=== PATIENT | male | born 1960 ===

== ENCOUNTER 2024-01-13 13:04 | Observation (INO) | payer BC ==
[~2024-01-13] VITALS: Ht 177.8 cm; Wt 128.6 kg
[2024-01-13 14:42] VITALS: BP 130/70
[2024-01-13] MEDS ORDERED: Magnesium Hydroxide Conc 10 ML UDC PO PRN (15:20)
[2024-01-13] MEDS ORDERED: TraZODone HCl 50 MG Tab PO PRN (15:20)
[2024-01-13] MEDS ORDERED: OxyCODONE HCL 5 MG TAB PO PRN (15:20)
[2024-01-13] MEDS ORDERED: Ondansetron 4 MG TAB PO PRN (15:20)
[2024-01-13] MEDS ORDERED: Acetaminophen 650 MG Supp PR PRN (15:25)
[2024-01-13] MEDS ORDERED: FLU VACC QS2023-24(6MOS UP)/PF 60 MCG/0.5 ML SYRINGE IM SCH (15:25)
[2024-01-13] MEDS ORDERED: Bisacodyl 10 MG Supp PR PRN (15:25)
[2024-01-13] MEDS ORDERED: Albuterol 2.5 MG/3 ML VIAL INH PRN (15:40)
[2024-01-13] MEDS ORDERED: HydrALAZINE HCl 20 MG / ML 1ML Vial IV PRN (15:40)
[2024-01-13] MEDS ORDERED: ALBU90OI INH (16:01)
[2024-01-13] MEDS ORDERED: SYMBICORT 160-4.6 GM INH (16:02)
[2024-01-13] MEDS ORDERED: Mometasone/Formoterol MDI 200/5 mcg 13 GM INH SCH (16:05)
[2024-01-13] MEDS ORDERED: CefTRIAXone Sodium 2,000 MG in NS 100 ML IV SCH (16:30)
[2024-01-13] MEDS ORDERED: MetroNIDAZOLE 500MG/NS 100 ml 100 ML IV SCH (16:30)
[2024-01-13] MEDS ORDERED: NS 1,000 ML IV SCH (17:00)
[2024-01-13] MEDS ORDERED: LevoFLOXacin 750 MG/D5W 150ML 150 ML IV SCH ×2 (17:00→18:00)
[2024-01-13] MEDS ORDERED: Promethazine HCl 25 MG Tab PO PRN (17:10)
--- NOTE | 2024-01-13 17:25 | NUR ---
PT ARRIVED TO THE ROOM AT APPROXIMATELY 1455. PT ALERT AND ORIENTED UPON ARRIVAL. PT RATES PAIN AT 2/10 AND REPORTS PAIN IS TOLERABLE. DR. WINTERS AWARE OF PT. DR. CHACKO NOTIFIED THAT PT ARRIVED. PT EDUCATED TO USE CALL LIGHT, CALL LIGHT WITHIN REACH.
[2024-01-13] MEDS ORDERED: Piperacillin/Tazobactam Sod 3.375 GM in NS 50 ML IV SCH (18:00)
[2024-01-13 19:16] VITALS: BP 151/71
--- NOTE | 2024-01-13 20:03 | NUR ---
SHIFT SUMMARY PAIN HAS BEEN MANAGED SINCE PT ARRIVED TO THE HOSPITAL. PT TOLERATING CLEAR LIQUIDS. PT IS A 1 ASSIST. PLAN FOR OR TOMORROW. BEDSIDE REPORT GIVEN TO AMADEO QUISPE.
[2024-01-13] MEDS ORDERED: Lactobacil 2-S.Thermo-Bifido 1 1 Cap PO SCH (21:00)
[2024-01-13] MEDS ORDERED: Famotidine 20 MG Tab PO SCH (21:00)
[2024-01-13] MEDS ORDERED: Sennosides 8.6 MG Tab PO SCH (21:00)
[2024-01-14] VITALS (17 sets, daily range): BP systolic 135–170; BP diastolic 59–84
[2024-01-14 04:45] LABS: Hematocrit 39.4 % (37.0-53.0); Hemoglobin 13.2 g/dL (13.5-17.5); Mean Corpuscular HGB 30.3 pg (26.0-34.0); Mean Corpuscular HGB Conc 33.5 g/dL (31.5-36.5); Mean Corpuscular Volume 91 fL (80-100); Mean Platelet Volume 9.4 fL (9.1-12.4); Platelet Count 177 K/mm3 (150-400); RDW Coefficient Variation 12.8 % (11.7-14.2); RDW Standard Deviation 42.4 fL (35.1-46.3); Red Blood Cell Count 4.35 M/mm3 (4.30-5.90); White Blood Cell Count 19.79 K/mm3 (4.00-11.30)
[2024-01-14 05:08] LABS: International Normalized Ratio 1.13; Prothrombin Time Results 11.8 Sec (9.7-11.5)
[2024-01-14 05:49] LABS: Albumin, Blood 2.8 g/dL (3.4-5.0); Albumin/Globulin Ratio 0.7 (0.8-1.8); Bun/Creatinine Ratio 8.7 (12.0-20.0); Calcium, Blood 8.3 mg/dL (8.5-10.1); Creatinine, Blood 1.15 mg/dL (0.60-1.20); Globulin, Blood 3.8 g/dL (2.2-4.0); Total Protein, Blood 6.6 g/dL (6.4-8.2)
--- NOTE | 2024-01-14 06:27 | NUR ---
PT VSS T/O NIGHT. PT DENIED PAIN/N/V. PT NPO POST MIDNIGHT FOR PLAN FOR SURGERY TODAY. IVF AND ABX CONT PER ORDERS.
[2024-01-14] MEDS ORDERED: Lactated Ringer's 1,000 ML IV SCH (10:25)
--- NOTE | 2024-01-14 10:35 | NUR ---
[facility]
--- NOTE | 2024-01-14 11:16 | NUR ---
Patient up to Ambulate independently. Gait steady. History, Chart, Medications and Allergies reviewed before start of procedure. Pre-Op teaching done. Pt verbalizes understanding. Patient confirms NPO status and agrees with scheduled surgery. Lungs clear T/O to Auscultation.
[2024-01-14] MEDS ORDERED: Bupivacaine 0.5% HCl 5 MG/ML 30MLVIAL ONE ×2 (12:49)
[2024-01-14] MEDS ORDERED: Ropivacaine 0.5% HCl/Pf 5 MG/ML 20ML VIAL ONE (12:53)
[2024-01-14] MEDS ORDERED: Ondansetron HCl 2 MG / ML 2ML Vial ONE (12:54)
[2024-01-14] MEDS ORDERED: Ketorolac Tromethamine 30mg Vial ONE (12:54)
[2024-01-14] MEDS ORDERED: SuccINYLCHOLINE Chloride 100 MG/5 ML 5MLSYR ONE (12:54)
[2024-01-14] MEDS ORDERED: Dexamethasone Sod Phos 10 MG/ML 1ML VIAL ONE (12:54)
[2024-01-14] MEDS ORDERED: FentaNYL Citrate 50 MCG/ML 2 ML Injection ONE (12:56)
[2024-01-14] MEDS ORDERED: propofoL 20 ML IV ONE (12:56)
[2024-01-14] MEDS ORDERED: HYDROmorphone HCl/Pf 1MG SYR ONE (13:45)
[2024-01-14] MEDS ORDERED: Sugammadex Sodium 200 MG/2ML SDV (100 MG/ML) ONE (14:23)
[2024-01-14] MEDS ORDERED: OxyCODONE HCL 5 MG TAB PO PRN (15:00)
[2024-01-14] MEDS ORDERED: NS 250 ML IV PRN (15:05)
--- NOTE | 2024-01-14 15:50 | NUR ---
POST OP RETURN TO SURGICAL UNIT ALERT, ORIENTED, & PLEASANT. LUNGS DIM. HRR. ABD SOFT, LARGE w/ LAP SITES x 3 & UMBILICUS w/ GAUZE w/ TEGADERM. NO DRNG NOTED. DENIES N/V. CLEAR LQ's GIVEN. DENIES PAIN.
[2024-01-14] MEDS ORDERED: Ketorolac Tromethamine 15mg Vial IV PRN (22:00)
[2024-01-15 00:09] VITALS: BP 121/58
[2024-01-15 05:02] LABS: BASOPHILS ABSOLUTE AUTO 0.03 K/mm3 (0.00-0.23); BASOPHILS PERCENT AUTO 0 % (0-2); EOSINOPHILS PERCENT AUTO 0 % (0-6); Hemoglobin 14.1 g/dL (13.5-17.5); IMMATURE GRAN ABSOLUTE AUTO 0.32 K/mm3 (0.00-0.10); IMMATURE GRAN PERCENT AUTO 2 % (0-1); LYMPHOCYTES ABSOLUTE AUTO 1.19 K/mm3 (0.84-5.20); LYMPHOCYTES PERCENT AUTO 6 % (21-46); MONOCYTES ABSOLUTE AUTO 1.34 K/mm3 (0.16-1.47); MONOCYTES PERCENT AUTO 7 % (4-13); Mean Corpuscular HGB 30.3 pg (26.0-34.0); Mean Corpuscular HGB Conc 33.6 g/dL (31.5-36.5); Mean Corpuscular Volume 90 fL (80-100); Mean Platelet Volume 10.1 fL (9.1-12.4); NEUTROPHILS ABSOLUTE AUTO 16.83 K/mm3 (1.96-9.15); NEUTROPHILS PERCENT AUTO 85 % (41-73); Platelet Count 205 K/mm3 (150-400); RDW Coefficient Variation 12.7 % (11.7-14.2); RDW Standard Deviation 42.2 fL (35.1-46.3); Red Blood Cell Count 4.65 M/mm3 (4.30-5.90); White Blood Cell Count 19.71 K/mm3 (4.00-11.30)
[2024-01-15 05:29] LABS: Albumin, Blood 2.9 g/dL (3.4-5.0); Albumin/Globulin Ratio 0.7 (0.8-1.8); Bilirubin, Total 0.5 mg/dL (0.1-1.0); Calcium, Blood 8.7 mg/dL (8.5-10.1); Creatinine, Blood 0.94 mg/dL (0.60-1.20); Globulin, Blood 4.2 g/dL (2.2-4.0); Potassium, Blood 3.9 mmol/L (3.5-5.5); Total Protein, Blood 7.1 g/dL (6.4-8.2)
--- NOTE | 2024-01-15 06:11 | NUR ---
POD 1 S/P LAP MARIELY +UMB HERNIA REP. PT VSS T/O NIGHT, SATS >90% ON RA. INCISIONS CDI. PT REP PAIN MINIMAL, MGD W/TORADOL W/REP RELIEF. PT RANULFO PO, DENIED N/V, REP +FLATUS THIS AM, IS VOIDING URINE W/O DIFFICULTY. PT AMB INDEP IN ROOM, RANULFO WELL, IS EAGER TO DC HOME TODAY.
[2024-01-15 07:25] VITALS: BP 135/72
[2024-01-15] MEDS ORDERED: Norco 5-325 Ta1 EACH PO (10:23)
--- NOTE | 2024-01-15 10:41 | NUR ---
DISCHARGE EATING, DRINKING, PASSING GAS. PAIN WELL CONTROLLED. IND AMBULATING w/ STEADY GAIT. EXCITED FOR DC HOME. [place] SCRIPT GIVEN. ESCORTED OUT VIA WC w/ WAITING IN CAR.
== END 2024-01-15 10:41 | disposition home or self-care (01) ==
LOC: SURS 13:04
PROVIDERS: Surgery; ADMIT Hospitalist
PROC: 0FT44ZZ Resection of Gallbladder, Percutaneous Endoscopic Approach (ICD-10-PCS; principal; 2024-01-14 13:00)
DX: K80.00 Calculus of gallbladder with acute cholecystitis without obstruction (principal); K82.A1 Gangrene of gallbladder in cholecystitis; K42.0 Umbilical hernia with obstruction, without gangrene; I10 Essential (primary) hypertension; J45.909 Unspecified asthma, uncomplicated; Z91.013 Allergy to seafood; Z88.0 Allergy status to penicillin; Z88.2 Allergy status to sulfonamides; Z79.899 Other long term (current) drug therapy
CPT/HCPCS: 36415; 71045; 80053; 85025; 85027; 85610; 88304; 94640; 94660; 94664; 94762; A9270; J0330; J1100; J1170; J1885; J1956; J2405; J2704; J2795; J3010; J7030; J7120